=== PATIENT | male | born 1940 | race Caucasian/White ===

== ENCOUNTER 2017-03-11 06:45 | Emergency (ER) | payer MEDICARE ==
--- NOTE | 2017-03-11 07:58 | C.PDOC ---
History Of Present Illness 76-year-old male presents to the emergency department with complaints of left sided gluteal pain that radiates down the leg for the past two days. Patient states he used Bryson's Vapo-rub without relief. He did try any PO medication. He denies falls/injuries, dysuria/hematuria, abdominal/flank pain, or any other associated symptoms. Time Seen by Provider: 03/11/17 07:03 Chief Complaint (Nursing): Back Pain History Per: Patient History/Exam Limitations: no limitations Onset/Duration Of Symptoms: Days Current Symptoms Are (Timing): Still Present Quality Of Discomfort: "Pain" Severity: Moderate Previous Symptoms: denies: Neck Pain Past Medical History Reviewed: Historical Data, Nursing Documentation, Vital Signs Vital Signs: Last Vital Signs Temp 98.2 F 03/11/17 08:03 Pulse 71 03/11/17 08:03 Resp 20 03/11/17 08:03 BP 196/87 H 03/11/17 08:03 Pulse Ox 98 03/11/17 09:41 - Medical History PMH: HTN, Hyperlipidemia Surgical History: Appendectomy, Cholecystectomy Family History: States: No Known Family Hx - Social History Hx Tobacco Use: No Hx Alcohol Use: Yes Hx Substance Use: No - Immunization History Hx Tetanus Toxoid Vaccination: No Hx Influenza Vaccination: No Hx Pneumococcal Vaccination: No Review Of Systems Except As Marked, All Systems Reviewed And Found Negative. Constitutional: Negative for: Fever Cardiovascular: Negative for: Chest Pain, Palpitations Respiratory: Negative for: Cough, Shortness of Breath Gastrointestinal: Negative for: Nausea, Vomiting, Abdominal Pain, Diarrhea Neurological: Negative for: Weakness, Numbness, Headache, Dizziness Physical Exam - Physical Exam Appears: Well, Non-toxic, No Acute Distress Skin: Warm, Dry, No Rash Head: Normacephalic Eye(s): bilateral: Normal Inspection Oral Mucosa: Moist Neck: Normal, Normal ROM Cardiovascular: Rhythm Regular Respiratory: Normal Breath Sounds, No Rales, No Rhonchi, No Wheezing Gastrointestinal/Abdominal: Normal Exam, Bowel Sounds, Soft, No Tenderness Extremity: Normal ROM, Capillary Refill (<2 seconds), No Deformity, Other (Left upper gluteal area is mildly tender to palpation. No swelling or erythema) Neurological/Psych: Oriented x3 ED Course And Treatment O2 Sat by Pulse Oximetry: 98 (RA) Pulse Ox Interpretation: Normal Progress Note: Patient treated with IM Toradol and PO Flexeril with improvement. On reassessment, he states his pain has improved and he feels better, is ambulating normally in ED. Rxs for naprosyn and flexeril given. Patient instructed to follow up with PMD in 1-2 days, and he understands he should return to ED if symptoms worsen. Reevaluation Time: 08:05 Reassessment Condition: Improved Disposition Counseled Patient/Family Regarding: Diagnosis, Need For Followup, Rx Given - Disposition Referrals: [facility] [Outside] Disposition: HOME/ ROUTINE Disposition Time: 08:05 Condition: STABLE Additional Instructions: FOLLOW UP WITH YOUR DOCTOR IN 1-2 DAYS USE MEDICATIONS NEEDED RETURN TO ER IF SYMPTOMS WORSEN Prescriptions: Cyclobenzaprine [Cyclobenzaprine HCl] 10 mg PO BID PRN #15 tab PRN Reason: Muscle Spasm Naproxen 375 mg PO BID PRN #20 tablet PRN Reason: pain Instructions: Sciatica (ED), Piriformis Syndrome (ED) Forms: [employer] (Rwandan) Print Language: KHMER - POA Present On Arrival: None - Clinical Impression Clinical Impression: Sciatica, Piriformis syndrome - Scribe Statement The provider has reviewed the documentation as recorded by the Scribe (Rose Mary Jackson) All medical record entries made by the Scribe were at my direction and personally dictated by me. I have reviewed the chart and agree that the record accurately reflects my personal performance of the history, physical exam, medical decision making, and the department course for this patient. I have also personally directed, reviewed, and agree with the discharge instructions and disposition.
[2017-03-11 08:04] VITALS: BP 196/87; PULSE 71; RESP 20; TEMP 98.2
[2017-03-11 09:38] VITALS: O2SAT 98
== END 2017-03-11 08:08 | disposition home or self-care (01) ==
LOC: C.ER 06:45
DX: M54.30 Sciatica, unspecified side (principal); G57.00 Lesion of sciatic nerve, unspecified lower limb; I10 Essential (primary) hypertension; E78.5 Hyperlipidemia, unspecified
CPT/HCPCS: 96372; 99283; J1885